=== PATIENT | male | born 1975 | race Caucasian/White ===

== ENCOUNTER → 2020-06-07 09:11 | Outpatient (BNVA) | payer MEDICARE, SELFPAY | PROVIDERS: PCP Student in an Organized Health Care Education/Training Program; Referring Provider Student in an Organized Health Care Education/Training Program; Visit Provider Internal Medicine | DX: B19.20 Unspecified viral hepatitis C without hepatic coma (principal) | CPT/HCPCS: 99212 ==

== ENCOUNTER → 2020-12-21 13:10 | Outpatient (BNVA) | payer MEDICARE, SELFPAY | PROVIDERS: PCP Student in an Organized Health Care Education/Training Program; Visit Provider Orthopaedic Surgery | DX: M77.11 Lateral epicondylitis, right elbow (principal) | CPT/HCPCS: 99202 ==